=== PATIENT | male | born 1965 | race Caucasian/White ===

== ENCOUNTER 2021-02-10 14:40 | Emergency (ER) | payer OTHER ==
[2021-02-10 15:29] LABS: #Basophils 0.1 10x3/uL (0.0-0.2); #Eosinphils 0.8 10x3/uL (0.0-0.5); #Monocytes 0.7 10x3/uL (0.0-1.1); #Neutrophils 9.8 10x3/uL (1.5-8.4); %Basophils 0.5 % (0.0-2.0); %Lymphocytes 13.2 % (18.0-47.0); %Monocytes 5.2 % (0.0-10.0); %Neutrophils 74.7 % (40.0-75.0); Hemoglobin 12.2 g/dL (13.5-17.5); Mean Corpuscular HGB CONC 33.2 g/dL (32.0-36.0); Mean Corpuscular Hemoglobin 30.9 pg (27.0-33.0); Mean Corpuscular Volume 93.2 fl (81.2-95.1); Mean Platelet Volume 11.3 fl (7.4-10.4); Platelet Count 280 10x3/uL (150-450); RBC Distribution Width 14.8 % (11.5-14.5); Red Blood Cell (RBC) Count 3.95 10x6/uL (4.32-5.72); White Blood Cell (WBC) Count 13.1 10x3/uL (3.5-10.5)
[2021-02-10 15:41] LABS: ALT (SGPT) 10 U/L (8-55); AST (SGOT) 14 U/L (5-34); Albumin 3.8 g/dL (3.5-5.0); Alkaline Phosphatase 81 U/L (40-110); Anion Gap 12 mmol/L (10-20); BUN (Urea Nitrogen) 18 mg/dL (8.4-25.7); Bilirubin, Total 0.3 mg/dL (0.2-1.2); Calc. Creatinine Clearance 0 mL/min (70-130); Calcium 8.7 mg/dL (7.8-10.44); Carbon Dioxide 24 mmol/L (22-29); Chloride 105 mmol/L (98-107); Globulin 3.2 g/dL (2.4-3.5); Glucose 159 mg/dL (70-105); Potassium 3.7 mmol/L (3.5-5.1); Sodium 137 mmol/L (136-145)
[2021-02-10] MEDS ORDERED: Aspirin 325 MG TAB ONE (20:55)
[2021-02-10 21:10] LABS: Troponin I Less than 0.010 ng/mL (< 0.028)
[2021-02-11 00:47] LABS: Troponin I Less than 0.010 ng/mL (< 0.028)
== END 2021-02-11 09:01 | disposition short-term general hospital (02) ==
LOC: CSHERS 14:40
DX: R07.9 Chest pain, unspecified (principal); R53.1 Weakness; E78.5 Hyperlipidemia, unspecified; I10 Essential (primary) hypertension; K51.90 Ulcerative colitis, unspecified, without complications; Z79.82 Long term (current) use of aspirin
CPT/HCPCS: 36415; 71045; 80053; 83880; 84484; 85025; 93005

== ENCOUNTER 2024-01-11 06:00 | Observation (INO) | payer OTHER ==
[2024-01-11] MEDS ORDERED: Labetalol HCl 100 MG/20 ML VIAL ONE (06:25)
[2024-01-11 06:42] LABS: #Basophils 0.04 10x3/uL (0.0-0.2); #Eosinophils 0.49 10x3/uL (0.0-0.5); #Neutrophils 5.41 10x3/uL (1.5-8.4); %Basophils 0.5 % (0.0-2.0); %Eosinophils 5.9 % (0.0-6.0); %Lymphocytes 18.2 % (18.0-47.0); %Monocytes 9.7 % (0.0-10.0); %Neutrophils 65.5 % (40.0-75.0); Hematocrit 42.1 % (38.8-50.0); Hemoglobin 13.6 g/dL (13.5-17.5); Mean Corpuscular HGB CONC 32.3 g/dL (32.0-36.0); Mean Corpuscular Hemoglobin 31.1 pg (27.0-33.0); Mean Corpuscular Volume 96.1 fL (81.2-95.1); Mean Platelet Volume 11.6 fL (7.4-10.4); Platelet Count 250 10x3/uL (150-450); RBC Distribution Width 14.4 % (11.5-14.5); Red Blood Cell (RBC) Count 4.38 10x6/uL (4.32-5.72); White Blood Cell (WBC) Count 8.3 10x3/uL (3.5-10.5)
[2024-01-11 06:49] LABS: Prothrombin Time 10.7 sec (9.5-12.1)
[2024-01-11 07:06] LABS: ALT (SGPT) 19 U/L (8-55); AST (SGOT) 18 U/L (5-34); Albumin 3.9 g/dL (3.5-5.0); Alkaline Phosphatase 119 U/L (40-110); Anion Gap 17 mmol/L (10-20); BUN (Urea Nitrogen) 19 mg/dL (8.4-25.7); Bilirubin, Total 0.3 mg/dL (0.2-1.2); Calc. Creatinine Clearance 0 mL/min (70-130); Calcium 8.7 mg/dL (7.8-10.44); Carbon Dioxide 20 mmol/L (22-29); Chloride 110 mmol/L (98-107); Estimated GFR 74; Globulin 3.5 g/dL (2.4-3.5); Glucose 99 mg/dL (70-105); Potassium 4.5 mmol/L (3.5-5.1); Protein, Total 7.4 g/dL (6.0-8.3); Sodium 142 mmol/L (136-145)
[2024-01-11 07:07] LABS: Troponin I Less than 0.010 ng/mL (< 0.028)
[2024-01-11] MEDS ORDERED: Aspirin 300 MG Suppository ONE (07:39)
[2024-01-11] MEDS ORDERED: Iopamidol 300 61% 100 ML VIAL FS ONE (11:12)
[2024-01-11 11:31] VITALS: BMI 29.0
[2024-01-11] MEDS ORDERED: hydrALAZINE 20 MG/ML VIAL SLOW IVP PRN (11:52)
[2024-01-11] MEDS ORDERED: Labetalol HCl 100 MG/20 ML VIAL SLOW IVP PRN (11:52)
[2024-01-11] MEDS: Ampicillin/Sulbactam 3 GM in Sodium Chloride 0.9% 100 ML IVPB SCH (18:18)
[2024-01-11] MEDS: Atorvastatin Calcium 40 MG TAB PO SCH (20:46)
[2024-01-12] MEDS: Tamsulosin HCl 0.4 MG CAP PO SCH ×2 (03:15→20:16)
[2024-01-12 03:24] LABS: Bilirubin Neg (Negative); Blood, Urine 150 (Negative); Clarity Clear (Clear); Glucose, Urine (Dipstick) Normal (Negative); Ketone, Urine Negative (Negative); Leukocyte 25 (Negative); Nitrite Negative (Negative); Protein, Urine (Dipstick) Negative (Neg-Trace); Urobilinogen Normal mg/dL (Less than 2)
[2024-01-12 05:10] LABS: Anion Gap 14 mmol/L (10-20); BUN (Urea Nitrogen) 13 mg/dL (8.4-25.7); Calc. Creatinine Clearance 91 mL/min (70-130); Calcium 8.6 mg/dL (7.8-10.44); Carbon Dioxide 21 mmol/L (22-29); Cardiac Risk 4.1 (Less than 4.5); Chloride 109 mmol/L (98-107); Cholesterol 103 mg/dl (< 200 Desired); Estimated GFR 83; Glucose 93 mg/dL (70-105); HDL Cholesterol 25 mg/dL (>60 Neg Risk); LDL Cholesterol, Calculated 69 mg/dL; Potassium 3.8 mmol/L (3.5-5.1); Sodium 140 mmol/L (136-145); Triglycerides 47 mg/dL (Less than 150)
[2024-01-12 05:20] LABS: Bacteria/HPF Rare-Few HPF (None Seen); Squamous Epithelial 0-3 HPF (0-3); WBC/HPF 0-3 HPF (0-3)
[2024-01-12 07:31] LABS: #Basophils 0.06 10x3/uL (0.0-0.2); #Eosinophils 0.54 10x3/uL (0.0-0.5); #Monocytes 0.74 10x3/uL (0.0-1.1); %Basophils 0.6 % (0.0-2.0); %Eosinophils 5.7 % (0.0-6.0); %Lymphocytes 15.8 % (18.0-47.0); %Monocytes 7.8 % (0.0-10.0); %Neutrophils 69.8 % (40.0-75.0); Hematocrit 41.8 % (38.8-50.0); Hemoglobin 13.4 g/dL (13.5-17.5); Mean Corpuscular HGB CONC 32.1 g/dL (32.0-36.0); Mean Corpuscular Hemoglobin 30.7 pg (27.0-33.0); Mean Corpuscular Volume 95.7 fL (81.2-95.1); Platelet Count 260 10x3/uL (150-450); RBC Distribution Width 14.4 % (11.5-14.5); Red Blood Cell (RBC) Count 4.37 10x6/uL (4.32-5.72); White Blood Cell (WBC) Count 9.5 10x3/uL (3.5-10.5)
[2024-01-12] MEDS ORDERED: Nitroglycerin 0.4 MG TAB (25 Tab Bottle) SL PRN (08:19)
[2024-01-12] MEDS ORDERED: Albuterol 2.5 MG (3 mL) NEB NEB PRN (08:32)
[2024-01-12] MEDS ORDERED: Clopidogrel Bisulfate 75 MG TAB PO SCH (09:00)
[2024-01-12] MEDS: Isosorbide Mononitrate 60 MG ER.TAB PO SCH (09:06)
[2024-01-12] MEDS: Ezetimibe 10 MG TAB PO SCH (09:06)
[2024-01-12] MEDS: Clopidogrel Bisulfate 75 MG TAB PO SCH (09:06)
[2024-01-12] MEDS: Sertraline 100 MG TAB PO SCH (09:06)
[2024-01-12] MEDS: Ranolazine ER 500 MG TAB PO SCH (09:06)
[2024-01-12] MEDS: Amlodipine 5 MG TAB PO SCH (09:06)
[2024-01-12] MEDS: Finasteride 5 MG TAB PO SCH (09:06)
[2024-01-12] MEDS: Aspirin 81 mg Enteric Coated Tablet PO SCH (09:06)
[2024-01-12] MEDS: Lisinopril 10 MG TAB PO SCH (09:07)
[2024-01-12] MEDS: Ipratropium Bromide 2.5 ml Neb NEB SCH (15:30)
[2024-01-12] MEDS: Acetaminophen 325 MG TAB PO PRN (19:28)
[2024-01-12] MEDS: Arformoterol 15 MCG/2 ML NEB NEB SCH (19:50)
[2024-01-12] MEDS: azaTHIOprine 50 MG TAB PO SCH (20:16)
[2024-01-12] MEDS: Terazosin HCl 1 MG CAP PO SCH (20:16)
[2024-01-12] MEDS: Atorvastatin Calcium 40 MG TAB PO SCH (20:18)
[2024-01-13 00:57] VITALS: BP 122/74; TEMP 97.7
== END 2024-01-13 00:25 ==
LOC: CSHERS 06:00 → EEVIPCON 06:00 → CSHTELE 10:46
PROVIDERS: ADMIT Family Medicine; ATTEND Physician Assistant
PROC: B246ZZZ Ultrasonography of Right and Left Heart (ICD-10-PCS; principal; 2024-01-13)
DX: G45.9 Transient cerebral ischemic attack, unspecified (principal); R53.1 Weakness; I10 Essential (primary) hypertension; E78.5 Hyperlipidemia, unspecified; K51.90 Ulcerative colitis, unspecified, without complications; J44.9 Chronic obstructive pulmonary disease, unspecified; I25.10 Atherosclerotic heart disease of native coronary artery without angina pectoris; I44.7 Left bundle-branch block, unspecified; I71.40 Abdominal aortic aneurysm, without rupture, unspecified; K04.7 Periapical abscess without sinus; R13.10 Dysphagia, unspecified; Z95.1 Presence of aortocoronary bypass graft; Z79.899 Other long term (current) drug therapy; Z79.82 Long term (current) use of aspirin; Z79.01 Long term (current) use of anticoagulants
CPT/HCPCS: 36415; 36416; 70450; 70496; 70498; 70551; 74230; 80048; 80053; 80061; 81001; 84484; 85025; 85610; 85730; 93005; 93306; 94640; 94762; 96374; J0295; J7500; J7644; Q9967